=== PATIENT | male | born 1980 | race African-American/Black ===

== ENCOUNTER 2017-12-12 19:45 | Inpatient (IN) | payer MEDICAID ==
[~2017-12-12] VITALS: Ht 180.3 cm; Wt 62.6 kg
[~2017-12-12 19:45] MED LIST: ACET-787 PO
[2017-12-12 19:50] VITALS: BP 119/81
[2017-12-12] MEDS ORDERED: HYDROmorphone PFS 4 MG/ML SYR IVP ONE (20:05)
[2017-12-12] MEDS ORDERED: NACL 0.9% 1,000 ML IV ONE ×2 (20:05→22:25)
[2017-12-12] MEDS ORDERED: diphenhydrAMINE 50 MG/ML VIAL IVP ONE ×2 (20:05→23:00)
[2017-12-12 21:18] LABS: HEMATOCRIT 38.3 % (36-52); HEMOGLOBIN 12.6 g/dL (12.0-18.0); MEAN CORPUSCULAR HEMOGLOBIN 29 pg (27-31); MEAN CORPUSCULAR HGB CONC 33 g/dL (33-37); MEAN CORPUSCULAR VOLUME 87 fL (80-94); PLATELET COUNT (AUTO) 165 K/uL (140-450); RED BLOOD CELL COUNT(AUTO) 4.39 MIL/uL (4.20-6.10); RED CELL DISTRIBUTION WIDTH 13.5 % (11.6-13.7)
[2017-12-12 21:22] LABS: WHITE BLOOD COUNT (AUTO) 5.7 K/uL (4.8-10.8)
[2017-12-12 21:33] LABS: EOSINOPHILS % (MANUAL) 1 % (0-4); LYMPHOCYTES % (MANUAL) 67 % (20-46); MONOCYTES % (MANUAL) 4 % (5-12)
[2017-12-12 21:42] LABS: PROTHROMBIN TIME 11.6 secs (10.8-13.4)
[2017-12-12] MEDS ORDERED: HYDROmorphone PFS 2 MG/ML SYR IVP ONE (23:00)
[2017-12-12] MEDS ORDERED: ONDANSETRON 4 MG/2 ML VIAL IVP PRN (23:15)
[2017-12-12] MEDS ORDERED: ACETAMINOPHEN 325 MG TAB PO PRN (23:15)
[2017-12-12] MEDS ORDERED: HYDROcodone/APAP 7.5/325 MG 1 TAB PO PRN (23:15)
[2017-12-12 23:45] VITALS: BP 123/54
[2017-12-12 23:48] LABS: BARBITURATE, URINE NEG. ng/ml (NEG <=200); BENZODIAZEPINE, URINE NEG. ng/mL (NEG <=200); CANNABINOID, URINE POS. ng/mL (NEG <=50); COCAINE, URINE NEG. ng/mL (NEG <=300); OPIATE, URINE POS. ng/mL (NEG <=2000); PHENCYCLIDINE SCREEN,URINE NEG. ng/mL (NEG <=25)
[2017-12-13] MEDS: NACL 0.9% 1,000 ML IV SCH ×2 (00:04→05:35)
[2017-12-13 00:13] LABS: APPEARANCE,URINE CLEAR (CLEAR); BILIRUBIN,URINE NEGATIVE (NEGATIVE); BLOOD, URINE NEGATIVE (NEGATIVE); COLOR,URINE YELLOW (YELLOW); LEUKOCYTE ESTERASE ,URINE NEGATIVE (NEGATIVE); NITRITE, URINE NEGATIVE (NEGATIVE); UGLUCOSE NEGATIVE (NEGATIVE)
[2017-12-13 00:48] LABS: ALBUMIN 3.8 g/dL (3.4-5.0); ANION GAP 14.9 (8-16); CARBON DIOXIDE 25.2 mmol/L (21-32); CREATININE 1.4 mg/dL (0.7-1.3); POTASSIUM 4.1 mmol/L (3.5-5.1); TOTAL BILIRUBIN 0.8 mg/dL (0.0-1.0)
[2017-12-13] MEDS ORDERED: MORPHINE SULFATE 2 MG/ML SYR IVP PRN (01:50)
[2017-12-13 02:33] LABS: CHOL/HDL RATIO 1.7 (1-4.5); FREE T4 (FREE THYROXINE) 0.9 ng/dL (0.76-1.46); PHOSPHORUS 3.1 mg/dL (2.5-4.9); THYROID STIMULATING HORMONE 1.92 uIU/mL (0.34-3.74)
[2017-12-13 04:00] VITALS: BP 120/63
[2017-12-13 06:29] LABS: HEMATOCRIT 30.7 % (36-52); HEMOGLOBIN 10.1 g/dL (12.0-18.0); MEAN CORPUSCULAR HEMOGLOBIN 29 pg (27-31); MEAN CORPUSCULAR HGB CONC 33 g/dL (33-37); MEAN CORPUSCULAR VOLUME 89 fL (80-94); PLATELET COUNT (AUTO) 151 K/uL (140-450); RED BLOOD CELL COUNT(AUTO) 3.46 MIL/uL (4.20-6.10); RED CELL DISTRIBUTION WIDTH 13.3 % (11.6-13.7); WHITE BLOOD COUNT (AUTO) 6.4 K/uL (4.8-10.8)
[2017-12-13 06:55] LABS: CARBON DIOXIDE 23.3 mmol/L (21-32); POTASSIUM 4.3 mmol/L (3.5-5.1)
[2017-12-13 06:56] LABS: CREATININE 1.3 mg/dL (0.7-1.3)
[2017-12-13 07:09] LABS: MAGNESIUM 1.2 mg/dL (1.8-2.4); PHOSPHORUS 2.4 mg/dL (2.5-4.9)
[2017-12-13 07:28] LABS: EOSINOPHILS % (MANUAL) 3 % (0-4); LYMPHOCYTES % (MANUAL) 24 % (20-46); MONOCYTES % (MANUAL) 12 % (5-12)
[2017-12-13 08:00] VITALS: BP 115/77
[2017-12-13] MEDS ORDERED: DOCUSATE SODIUM 100 MG GELCAP PO SCH (09:00)
[2017-12-13] MEDS ORDERED: HYDROcodone/APAP 10/325 MG 1 TAB TAB PO PRN (11:55)
[2017-12-13 12:50] VITALS: BP 110/68
[2017-12-13] MEDS ORDERED: CALCIUM CARBONATE 500 MG TAB PO SCH (14:00)
[2017-12-13] MEDS ORDERED: MAGNESIUM OXIDE 400 MG TAB PO SCH (14:00)
[2017-12-13] MEDS ORDERED: SODIUM PHOS / POTASSIUM PHOS 1 PKT PDR PO SCH (14:00)
[2017-12-13 16:10] VITALS: BP 113/68
[2017-12-13] MEDS ORDERED: MECL-272 PO (16:24)
[2017-12-13] MEDS ORDERED: ONDA4ODT1 SL (16:24)
[2017-12-13] MEDS ORDERED: NORC10 PO (16:24)
[2017-12-13] MEDS ORDERED: DOCU-299 PO (16:24)
== END 2017-12-13 17:30 | disposition home or self-care (01) | DRG 469 ==
LOC: MED 19:45 → MTU 23:17
PROVIDERS: ADMIT Family Medicine Sports Medicine; ATTEND Family Medicine Sports Medicine
DX: N17.0 Acute kidney failure with tubular necrosis (principal); E87.8 Other disorders of electrolyte and fluid balance, not elsewhere classified; G89.4 Chronic pain syndrome; F12.10 Cannabis abuse, uncomplicated; D64.9 Anemia, unspecified; E83.51 Hypocalcemia; E83.42 Hypomagnesemia; E83.39 Other disorders of phosphorus metabolism; Z88.0 Allergy status to penicillin
CPT/HCPCS: 36415; 71045; 80048; 80053; 80305; 81003; 82550; 83036; 83605; 83735; 83880; 84100; 84439; 84443; 84484; 85025; 85045; 85610; 87040; 87081; 87086; 87804; 93005; 96361; 96374; 96375; 96376; 97116; 99285; J1170; J1200; J2270; J7030; Q0092

== ENCOUNTER 2019-03-18 11:58 | Inpatient (IN) | payer MEDICAID ==
[~2019-03-18] VITALS: Ht 180.3 cm; Wt 61.2 kg
[~2019-03-18 11:58] MED LIST changes: -ACET-787 PO; +DOCU-299 PO; +MECL-272 PO; +NORC10 PO; +ONDA-24 SL
[2019-03-18 12:04] VITALS: BP 102/46
--- NOTE | 2019-03-18 12:20 | NUR ---
BIB SELF. AAO X 4 C/O SOB SINCE LAST NIGHT, 99 O2 SAT AT THIS TIME, PT SHOWS NO TIME OF DISSTRESS AT THIS TIME, VSS. DENIES COUGHING, NAUSEA, VOMITING. MILA UPPER LUNGS CLEAR UPON AUSCULTATION. HOB UP. BED SIDE RAILS UP X1. ON LOW BED POSITION, LOCKED. MD MARS MADE AWARE OF PT STATUS. Addendum: 03/18/19 at 1402 by [facility] BIB SELF. AAO X 4 C/O GENERALIZED CHEST PAIN X 3 DAYS, SOB SINCE LAST NIGHT, 99 O2 SAT AT THIS TIME, PT SHOWS NO TIME OF DISTRESS AT THIS TIME, VSS. NON DIAPHORETIC. DENIES COUGHING, NAUSEA, VOMITING. MILA UPPER LUNGS CLEAR UPON AUSCULTATION. FACIAL SYMMETRICAL, CLEAR SPEECH. HOB UP. BED SIDE RAILS UP X1. ON LOW BED POSITION, LOCKED. MD MARS MADE AWARE OF PT STATUS.
--- NOTE | 2019-03-18 12:20 | NUR ---
PT TO ER BED 2
[2019-03-18] MEDS ORDERED: ONDANSETRON 4 MG/2 ML VIAL IVP ONE (12:45)
[2019-03-18] MEDS ORDERED: KETOROLAC 30 MG/ML VIAL IVP ONE (12:45)
[2019-03-18] MEDS ORDERED: MORPHINE SULFATE 4 MG/ML SYR IVP ONE (12:45)
--- NOTE | 2019-03-18 12:50 | NUR ---
PT IS 02 SATURATION IS AT 99% ROOM AIR. NO SIGNS AND SYMPTOMS OF RESPIRATORY DISTRESS. WILL CONTINUE TO MONITOR.
[2019-03-18 13:15] LABS: BASOPHILS % (AUTO) 0.8 % (0.0-2.0); EOSINOPHILS # (AUTO) 0.2 K/uL (0-0.4); EOSINOPHILS % (AUTO) 2.8 % (0.0-4.0); HEMATOCRIT 34.7 % (36-52); HEMOGLOBIN 12.1 g/dL (12.0-18.0); LYMPHOCYTES # (AUTO) 3.3 K/uL (2.0-11.5); MEAN CORPUSCULAR HEMOGLOBIN 29 pg (27-31); MEAN CORPUSCULAR HGB CONC 35 g/dL (33-37); MEAN CORPUSCULAR VOLUME 83.9 fL (80-94); MONOCYTES # (AUTO) 0.4 K/uL (0.8-1.0); MONOCYTES % (AUTO) 7.3 % (1.7-9.3); NEUTROPHILS % (AUTO) 33.1 % (42.2-75.2); PLATELET COUNT (AUTO) 212 K/uL (140-450); RED BLOOD CELL COUNT(AUTO) 4.14 MIL/uL (4.20-6.10); RED CELL DISTRIBUTION WIDTH 15.2 % (11.6-13.7); WHITE BLOOD COUNT (AUTO) 5.9 K/uL (4.8-10.8)
--- NOTE | 2019-03-18 13:20 | NUR ---
RADIOLOGY AT BEDSIDE
[2019-03-18 13:30] LABS: PROTHROMBIN TIME 10.6 secs (10.8-13.4)
[2019-03-18 13:34] LABS: BARBITURATE, URINE NEG. ng/ml (NEG <=200); BENZODIAZEPINE, URINE NEG. ng/mL (NEG <=200); CANNABINOID, URINE POS. ng/mL (NEG <=50); COCAINE, URINE NEG. ng/mL (NEG <=300); OPIATE, URINE NEG. ng/mL (NEG <=2000); PHENCYCLIDINE SCREEN,URINE NEG. ng/mL (NEG <=25)
[2019-03-18 13:43] LABS: ANION GAP 9.4 (8-16); CARBON DIOXIDE 28.8 mmol/L (21-32); CREATININE 1.3 mg/dL (0.7-1.3); POTASSIUM 4.2 mmol/L (3.5-5.1)
[2019-03-18 13:48] LABS: ALBUMIN 3.5 g/dL (3.4-5.0); TOTAL BILIRUBIN 0.5 mg/dL (0.0-1.0)
--- NOTE | 2019-03-18 14:02 | NUR ---
CRITICAL LAB REPORTING RECEIVED TROPONIN 1.032. DR RESTREPO NOTIFIED.
--- NOTE | 2019-03-18 14:05 | NUR ---
PATIENT IS AAO X4. FULL CLEAR SPEECH. PT IS ON THE PHONE AT THIS TIME.
[2019-03-18] MEDS ORDERED: ASPIRIN 325 MG TAB PO ONE (14:15)
[2019-03-18] MEDS ORDERED: CLOPIDOGREL 75 MG TAB PO ONE (14:15)
[2019-03-18] MEDS ORDERED: FAMOTIDINE 20 MG TAB PO ONE (14:15)
--- NOTE | 2019-03-18 14:40 | NUR ---
PT WAS GIVEN BLANKETS PER PT'S REQUEST.
[2019-03-18] MEDS ORDERED: LACTATED RINGERS 1,000 ML IV ONE (15:10)
--- NOTE | 2019-03-18 15:15 | NUR ---
AAO X4. ABLE TO CONVERSATE WITH FULL CLEAR SPEECH. NO SIGNS AND SYMPTOMS OF RESPIRATORY DISTRESS NOTED. WILL CONTINUE TO MONITOR.
[2019-03-18 15:17] LABS: D-DIMER 308 ng/ml (0-400)
--- NOTE | 2019-03-18 16:15 | NUR ---
PT'S AT BEDSIDE. PT AAO X4. CLEAR SPEECH. NO SIGNS AND SYMPTOMS OF RESPIRATORY DISTRESS NOTED.
[2019-03-18 16:46] LABS: FIBRINOGEN 259 mg/dL (200-400)
[2019-03-18] MEDS ORDERED: MORPHINE SULFATE 2 MG/ML SYR IVP PRN (17:05)
[2019-03-18] MEDS ORDERED: LORazepam 2 MG/ML VIAL IM/IVP PRN (17:05)
[2019-03-18] MEDS ORDERED: ACETAMINOPHEN 325 MG TAB PO PRN (17:05)
[2019-03-18] MEDS ORDERED: HYDROcodone/APAP 5/325 MG 1 TAB TAB PO PRN (17:05)
[2019-03-18] MEDS ORDERED: DOCUSATE SODIUM 100 MG GELCAP PO PRN (17:05)
--- NOTE | 2019-03-18 17:10 | NUR ---
PT GIVEN FOOD TRAY FOR DINNER ORDERED.
--- NOTE | 2019-03-18 18:14 | NUR ---
RECEIVED REPORT FROM ER NURSE AT BEDSIDE. PT ADMITTED WITH DX OF SECKEL CELL ANEMIA. PT IS AOX4, ABLE TO AMBULATE. REGULAR DIET. HAS LFT AC 22G, SALINE LOCK. SKIN IS INTACT. VS RECORDED T 98.0, O2 98% ON RA, HR 65, BP 109/80. PT ON SAW REPAIRER . PLACED CALL LIGHT WITHIN PTS REACH. INFORMED TO USE CALL LIGHT FOR ANY HELP. PT STABLE, LYING ON HIS BED COMFORTABLY. NO SIGN OF DISTRESS NOTED. WILL CONTINUE TO MONITOR PT.
--- NOTE | 2019-03-18 18:18 | NUR ---
Patient will be admitted to care of Dr Hsieh. Admited to Tele. Will go to room 112 B. Belongings list completed. Report to SO Swain.
[2019-03-18 18:22] LABS: PHOSPHORUS 3.6 mg/dL (2.5-4.9); THYROID STIMULATING HORMONE 3.91 uIU/mL (0.34-3.74)
[2019-03-18] MEDS ORDERED: hePARIN / DEXT 5% PREMIX 250 ML IV SCH (18:40)
[2019-03-18] MEDS ORDERED: HEPARIN PER PHARMACY MC PRN (18:40)
[2019-03-18] MEDS ORDERED: KETOROLAC 15 MG/ML VIAL IVP PRN (18:40)
--- NOTE | 2019-03-18 19:12 | NUR ---
ENDORSED PT TO PM NURSE AT BEDSIDE. PT SLEEPING IN HIS BED AT THIS TIME. MRSA SWAB COLLECTED AND ENDORSED TO PM NURSE.
[2019-03-18 19:30] VITALS: BP 124/86
--- NOTE | 2019-03-18 19:30 | NUR ---
RECEIVED PATIENT REPORT AT BEDSIDE. PATIENT AWAKE, ALERT AND ORIENTED. PT ON ROOM AIR, NO S/S OF DISTRESS AT THIS TIME. PT REPORTS 8/10 PRESSURE PAIN TO HIS CHEST. WILL MEDICATE. PT ON TELE MONITORING. BED LOWERED WITH CALL LIGHT WITHIN REACH
[2019-03-18] MEDS: MORPHINE SULFATE 2 MG/ML SYR IVP PRN (19:51)
--- NOTE | 2019-03-18 20:00 | NUR ---
HEPARIN DRIP STARTED PER PROTOCOL
[2019-03-18] MEDS: hePARIN / DEXT 5% PREMIX 250 ML IV SCH (20:01)
[2019-03-18] MEDS: NACL 0.9% 1,000 ML IV SCH (20:05)
--- NOTE | 2019-03-18 21:01 | NUR ---
RECEIVED PATIENT ON ROOM AIR, PULSE OX SAT 99%. NO SOB. NO RESPIRATORY DISTRESS NOTED AT THIS TIME. WILL CONTINUE TO MONITOR.
--- NOTE | 2019-03-18 22:30 | NUR ---
PATIENT AWAKE IN BED, WATCHING TELEVISION. PATIENT REPORTS IMPROVED CHEST PAIN
[2019-03-19] VITALS (7 sets, daily range): BP systolic 97–123; BP diastolic 56–78
[2019-03-19] MEDS: MORPHINE SULFATE 2 MG/ML SYR IVP PRN ×4 (02:12→20:49)
[2019-03-19] MEDS: ZOLPIDEM 5 MG TAB PO PRN ×2 (02:15→20:52)
[2019-03-19] MEDS: hePARIN / DEXT 5% PREMIX 250 ML IV SCH ×3 (02:41→23:49)
[2019-03-19] MEDS: NACL 0.9% 1,000 ML IV SCH ×3 (03:04→23:04)
--- NOTE | 2019-03-19 03:09 | NUR ---
PT ASLEEP AT THIS TIME. NO S/S OF DISTRESS NOTED
--- NOTE | 2019-03-19 07:22 | NUR ---
PATIENT REPORT GIVEN AT BEDSIDE. PATIENT ENDORSED IN STABLE CONDITION
--- NOTE | 2019-03-19 07:23 | NUR ---
REPORT RECEIVED FROM PM NURSE. PT LAYING IN BED. BREATHING EQUAL AND UNLABORED. IV INTACT RUNNING HEPARIN DRIP. PT IN NO VISIBLE DISTRESS. CALL LIGHT WITHIN REACH.
[2019-03-19 08:07] LABS: BASOPHILS % (AUTO) 0.2 % (0.0-2.0); EOSINOPHILS # (AUTO) 0.2 K/uL (0-0.4); EOSINOPHILS % (AUTO) 2.7 % (0.0-4.0); HEMATOCRIT 33.7 % (36-52); HEMOGLOBIN 11.8 g/dL (12.0-18.0); LYMPHOCYTES # (AUTO) 3.6 K/uL (2.0-11.5); LYMPHOCYTES % (AUTO) 61.1 % (20.5-51.1); MEAN CORPUSCULAR HEMOGLOBIN 29 pg (27-31); MEAN CORPUSCULAR HGB CONC 35 g/dL (33-37); MEAN CORPUSCULAR VOLUME 83.3 fL (80-94); MONOCYTES # (AUTO) 0.4 K/uL (0.8-1.0); MONOCYTES % (AUTO) 6.8 % (1.7-9.3); NEUTROPHILS # (AUTO) 1.7 K/uL (1.8-7.7); NEUTROPHILS % (AUTO) 29.2 % (42.2-75.2); PLATELET COUNT (AUTO) 216 K/uL (140-450); RED BLOOD CELL COUNT(AUTO) 4.04 MIL/uL (4.20-6.10); RED CELL DISTRIBUTION WIDTH 15.3 % (11.6-13.7); WHITE BLOOD COUNT (AUTO) 5.9 K/uL (4.8-10.8)
--- NOTE | 2019-03-19 08:08 | NUR ---
PATIENT HAS BEEN SCREENED AND CATEGORIZED MODERATE NUTRITION RISK. PATIENT WILL BE SEEN WITHIN 3-5 DAYS OF ADMISSION. 03/21/19[address]
[2019-03-19] MEDS: ATORVASTATIN 20 MG TAB PO SCH (08:22)
[2019-03-19] MEDS: ASPIRIN 81 MG TAB.CHEW PO SCH (08:22)
[2019-03-19 08:25] LABS: ANION GAP 10.4 (8-16); CARBON DIOXIDE 27.7 mmol/L (21-32); CREATININE 1.2 mg/dL (0.7-1.3); POTASSIUM 4.1 mmol/L (3.5-5.1)
[2019-03-19 08:29] LABS: MAGNESIUM 1.7 mg/dL (1.8-2.4); PHOSPHORUS 3.1 mg/dL (2.5-4.9)
[2019-03-19 09:33] LABS: CHOL/HDL RATIO 2.1 (1-4.5)
[2019-03-19] MEDS ORDERED: MAGNESIUM OXIDE 400 MG TAB PO SCH (10:00)
--- NOTE | 2019-03-19 10:16 | NUR ---
Spoke to Manuel clinical laboratory aides teacher re: PTT result. Per Manuel, specimen is already drawn & waiting for results.
--- NOTE | 2019-03-19 10:40 | NUR ---
HEPARIN DRIP HELD DUE TO ELEVATED PTT. IV LINE FLUSHED WITH SALINE, PT SHOWS NO SIGNS OF BLEEDING.
--- NOTE | 2019-03-19 11:50 | NUR ---
RESUMED HEPARIN DRIP TO LEFT AC IV AT 800 UNITS/HR. PT SHOWS NO SIGNS OF BLEEDING.
--- NOTE | 2019-03-19 12:30 | NUR ---
O2 OFF, ASKED PT TO WEAR N.C. PT REFUSED, STATES HE IS BREATHING OKAY. EXPLAINED BENEFITS OF O2 SUPPLEMENT FOR SICKLE CELL CRISIS. PT VERBALIZED UNDERSTANDING BUT CONTINUES TO REFUSE. NO C/O OF DISCOMFORT. NO SIGNS OF DISTRESS.
--- NOTE | 2019-03-19 14:05 | NUR ---
REVIEWED WITH DR. YAEL SALINAS CARBOXYHEMOGLOBIN STATUS LEVEL TAKEN FROM ABG ON 03/18/2018 REVIEWED PATIENT ASSESSMENT AND HISTORY LOC AWAKE AND ALERT VERBALLY RESPONSIVE FOLLOWS COMMANDS PATIENT IS NOT CURRENTLY EXPOSED TO TOXIN CAUSING INCREASED LEVEL OF CARBOXYHEMOGLOBIN SATURATION 100% ON ROOM AIR NO SOB NOTED RR 16-20 BREATH SOUNDS CLEAR BILATERAL EQUAL CHEST RISE HIGH FLOW OXYGEN ORDERED IS NOT APPROPRIATE NOTED TODAY AT 1230 BY RN PATIENT IS REFUSING TO EVEN USE SUPPLEMENTAL OXYGEN VIA NASAL CANNULA
--- NOTE | 2019-03-19 19:10 | NUR ---
REPORT GIVEN TO PM NURSE MASOUD. PT IN BED, AWAKE. NO SIGNS OF DISTRESS
--- NOTE | 2019-03-19 19:11 | NUR ---
RECEIVED BEDSIDE REPORT FROM DAY SHIFT NURSE. PT IN STABLE CONDITION. NO S/S OF SOB OR ANY DISCOMFORT. DENIED PAIN. IV SITE ON LAC 22GAUZE, RUNNING WITH NS @ 100ML/HR. PATENT, INTACT, AND ASYMPTOMATIC. SKIN WARM, DRY AND INTACT. BED IN LOW POSITION. CALL LIGHT WITHIN REACH. WILL CONTINUE TO MONITOR.
--- NOTE | 2019-03-19 20:48 | NUR ---
RECEIVED PATIENT ON ROOM AIR, PULSE OX SAT 100%. NO SOB. NO RESPIRATORY DISTRESS NOTED AT THIS TIME. WILL CONTINUE TO MONITOR.
--- NOTE | 2019-03-19 20:49 | NUR ---
PT C/O PAIN 8/10 ABDOMINAL PAIN. PT TOLERATED WELL. AMBIEN GIVEN FOR SLEEP.
--- NOTE | 2019-03-19 22:05 | NUR ---
PT SLEEPING BUT AROUSABLE. NO S/S OF DISTRESS NOTED. WILL CONTINUE TO MONITOR.
--- NOTE | 2019-03-19 23:40 | NUR ---
LAB CALLED FOR CRITICAL VALUE, APTT 80.2, PROTOCOL SAYS DECREASE RATE BY 100 UNITS / HR. TOTAL RATE NOW 700UNITS /HR.
--- NOTE | 2019-03-19 23:49 | NUR ---
HEPARIN IVPB HUNG RUNNING HEPARIN @ 700UNITS/HR Addendum: 03/20/19 at 0325 by Janee Brown RN OR 7ML/HR.
[2019-03-20] VITALS (7 sets, daily range): BP systolic 106–110; BP diastolic 69–85
--- NOTE | 2019-03-20 03:05 | NUR ---
WENT IN TO MEDICATE PATIENT FOR PAIN. NOTICED THE BAG OF HEPARIN DRIP WAS BECOMING EMPTY. CHECKED THE BAG AND THERE WAS ONLY 50ML OF FLUID LEFT. CHECKED THE IV INFUSION PUMP AND IT STATED THAT IT WAS ON IVF@70ML/HR. PATIENT'S NS RUNS@100ML/HR. ASSESSED THE PATIENT FOR ANY SIGNS OF BLEEDING. PT STATED HE FELT FINE. CHARGE NURSE WAS NOTIFIED AND WAS IN THE ROOM TO SEE PATIENT STATUS. Addendum: 03/20/19 at 0337 by Arley Dutton RN PT VITAL SIGNS STABLE. BP 109/69. HR 57. O2 SAT 100%. TEMPERATURE OF 98.2. RR 16. THESE ARE PT BASELINE VITALS.
[2019-03-20] MEDS: MORPHINE SULFATE 2 MG/ML SYR IVP PRN ×2 (03:08→09:08)
--- NOTE | 2019-03-20 03:10 | NUR ---
MD NOTIFIED ABOUT FINDINGS OF HEPARIN DRIP. MD TO SEE PATIENT. PATIENT SLIGHTLY ANXIOUS BUT WAS CALM AFTER EXPLAINING TO HIM THE DRIP WOULD NOT AFFECT SEVERELY.
--- NOTE | 2019-03-20 03:15 | NUR ---
MD AWARE OF THE SITUATION. ORDERS TO STOP HEPARIN DRIP AND WAIT FOR THE NEXT APTT LAB TO REASSESS THE SITUATION. ALLOW PATIENT TO GET BACK INTO THERAPEUTIC RANGE AND CONTINUE HEPARIN DRIP THEN.
--- NOTE | 2019-03-20 03:20 | NUR ---
ENSURED PATIENT THAT EVERYTHING IS FINE. PATIENT CALMED DOWN AND WENT BACK TO BED. CHECKED PATIENT URINE TO ENSURE THERE IS NO EXCESSIVE BLEEDING. Addendum: 03/20/19 at 0339 by Arley Dutton RN TOLD PATIENT THAT IF HE FEELS ANY FEELINGS OF DISTRESS OR S/S OF GENERAL WEAKNESS TO PRESS THE CALL BUTTON.
--- NOTE | 2019-03-20 04:45 | NUR ---
PT SLEEPING COMFORTABLY BUT AROUSABLE. NO S/S OF DISTRESS NOTED. NO C/O PAIN. NO SOB. NO FEVER. RESPIRATION EVEN AND UNLABORED WITHIN NORMAL LIMIT. WILL CONTINUE TO MONITOR.
[2019-03-20 06:44] LABS: BASOPHILS # (AUTO) 0.1 K/uL (0.00-0.22); BASOPHILS % (AUTO) 0.9 % (0.0-2.0); EOSINOPHILS # (AUTO) 0.2 K/uL (0-0.4); EOSINOPHILS % (AUTO) 2.6 % (0.0-4.0); HEMATOCRIT 34.1 % (36-52); HEMOGLOBIN 12.1 g/dL (12.0-18.0); LYMPHOCYTES # (AUTO) 2.9 K/uL (2.0-11.5); LYMPHOCYTES % (AUTO) 44.8 % (20.5-51.1); MEAN CORPUSCULAR HEMOGLOBIN 30 pg (27-31); MEAN CORPUSCULAR HGB CONC 36 g/dL (33-37); MEAN CORPUSCULAR VOLUME 83.4 fL (80-94); MONOCYTES # (AUTO) 0.6 K/uL (0.8-1.0); MONOCYTES % (AUTO) 8.9 % (1.7-9.3); NEUTROPHILS # (AUTO) 2.8 K/uL (1.8-7.7); NEUTROPHILS % (AUTO) 42.8 % (42.2-75.2); PLATELET COUNT (AUTO) 215 K/uL (140-450); RED BLOOD CELL COUNT(AUTO) 4.08 MIL/uL (4.20-6.10); RED CELL DISTRIBUTION WIDTH 14.7 % (11.6-13.7); WHITE BLOOD COUNT (AUTO) 6.5 K/uL (4.8-10.8)
[2019-03-20 06:46] LABS: ANION GAP 9.5 (8-16); CARBON DIOXIDE 29.7 mmol/L (21-32); CREATININE 1.2 mg/dL (0.7-1.3); POTASSIUM 4.2 mmol/L (3.5-5.1)
[2019-03-20 06:47] LABS: MAGNESIUM 1.8 mg/dL (1.8-2.4); PHOSPHORUS 3.3 mg/dL (2.5-4.9)
--- NOTE | 2019-03-20 07:10 | NUR ---
CRITICAL LAB VALUE RECEIVED FROM LAB. APTT GREATER THAN 150.
--- NOTE | 2019-03-20 07:14 | NUR ---
REPORT GIVEN TO AM NURSE AT BEDSIDE. PT IN STABLE CONDITION.
--- NOTE | 2019-03-20 07:15 | NUR ---
RECEIVED REPORT FROM PM NURSE MASOUD. PT IN BED, ASLEEP. NO VISIBLE SIGNS OF DISTRESS. WOKE UP WHEN NAME IS CALLED. ABLE TO ANSWER QUESTIONS APPROPRIATELY. CALL LIGHT WITHIN REACH.
--- NOTE | 2019-03-20 07:40 | NUR ---
NOTIFIED OF CRITICAL LAB VALUE OF APTT.
[2019-03-20] MEDS: ONDANSETRON 4 MG/2 ML VIAL IM/IVP PRN ×2 (08:58→15:39)
--- NOTE | 2019-03-20 08:58 | NUR ---
Zofran admin: Pt c/o nausea. Zofran given. Emesis provided at bedside.
[2019-03-20] MEDS ORDERED: MAGNESIUM OXIDE 400 MG TAB PO SCH (09:00)
[2019-03-20] MEDS: ASPIRIN 81 MG TAB.CHEW PO SCH (09:00)
--- NOTE | 2019-03-20 09:00 | NUR ---
Aspirin held d/t elevated PTT. No signs of bleeding a this time.
[2019-03-20] MEDS: ATORVASTATIN 20 MG TAB PO SCH (09:08)
[2019-03-20] MEDS: NACL 0.9% 1,000 ML IV SCH ×2 (09:33→19:04)
--- NOTE | 2019-03-20 10:05 | NUR ---
AWAKE AND ALERT ADVISED PATIENT OF PENDING ABG THAT NEEDS BE DRAWN PATIENT STATES "I DON'T WANT IT - IT HURTS ME TOO MUCH" DR. AVA BURNS AND SMITH/SO NOTIFIED
--- NOTE | 2019-03-20 11:00 | NUR ---
PT SLEEPING IN BED. NO VISIBLE SIGNS OF DISTRESS. CALL LIGHT WITH IN REACH.
--- NOTE | 2019-03-20 13:00 | NUR ---
Pt requests not to have heparin drip anymore. Per heparin pharmacy protocol, heparin drip to resume at 500units/hr. Dr. Rivera notified. Per physician, ok to hold heparin per pt request.
--- NOTE | 2019-03-20 15:30 | NUR ---
Pt c/o nausea. no vomiting. Zofran given.
--- NOTE | 2019-03-20 16:30 | NUR ---
PT ASLEEP. FLACC 0. LEFT AC IV INTACT WITH N.S @ 100ML/HR. CALL LIGHT WITH IN REACH. NO SIGNS OF BLEEDING.
--- NOTE | 2019-03-20 19:30 | NUR ---
Bedside report given to pm nurse Ingrid. Pt resting in bed, awake, no signs of distress. Explained to pt, awaiting sales contracts analyst visit today. Pt verbalized he will leave AMA if sales contracts analyst does not come in. Reassurance provided. PM nurse notified.
--- NOTE | 2019-03-20 19:30 | NUR ---
RECEIVED BEDSIDE REPORT FROM DAY SHIFT NURSE. PT IN STABLE CONDITION. RESPIRATION EVEN UNLABORED ON ROOM AIR. NO S/S OF SOB OR ANY DISCOMFORT.SKIN IS WARM AND DRY. DENIED PAIN. IV SITE PATENT AND INTACT. ALL SAFETY MEASURES IN PLACE. BED IS AT LOW POSITION. CALL LIGHT WITHIN REACH. WILL CONTINUE TO MONITOR.
--- NOTE | 2019-03-20 20:00 | NUR ---
INITIAL ASSESSMENT DONE. VITALS WERE TAKEN. PATIENT CONDITION STABLE. WILL CONTINUE TO MONITOR
--- NOTE | 2019-03-20 21:00 | NUR ---
HEPARIN NOT ADMINISTERED DUE TO PARAMETER.
[2019-03-20] MEDS ORDERED: ACET-5629 PO (22:04)
[2019-03-20] MEDS ORDERED: ONDA-24 SL (22:04)
--- NOTE | 2019-03-20 22:34 | NUR ---
RECEIVED PATIENT ON ROOM AIR, PULSE OX SAT 99%. NO DISTRESS NOTED AT THIS TIME. WILL CONTINUE TO MONITOR.
--- NOTE | 2019-03-20 22:45 | NUR ---
PATIENT DISCHARGED. EDUCATED ON DISEASE PROCESS, MEDS, S/SX, WHEN TO GO TO ER AND EDUCATED ON THE IMPORTANCE TO FOLLOW UP WITH HIS PCP. IV REMOVE. NO ACTIVE BLEEDING SEEN. CANNULA TIP INTACT. PATIENT CONDITION STABLE.
== END 2019-03-21 02:21 | disposition home or self-care (01) | DRG 662 ==
LOC: MED 11:58 → MTU 17:44
PROVIDERS: ADMIT General Practice; ATTEND General Practice
DX: D57.00 Hb-SS disease with crisis, unspecified (principal); E83.42 Hypomagnesemia; R07.9 Chest pain, unspecified; F12.90 Cannabis use, unspecified, uncomplicated; E03.9 Hypothyroidism, unspecified; Z83.2 Family history of diseases of the blood and blood-forming organs and certain disorders involving the immune mechanism; Z88.0 Allergy status to penicillin; Z79.899 Other long term (current) drug therapy; Z71.51 Drug abuse counseling and surveillance of drug abuser
CPT/HCPCS: 36415; 36600; 71045; 80048; 80053; 80305; 82803; 83036; 83690; 83735; 83880; 84100; 84443; 84484; 85007; 85025; 85045; 85379; 85384; 85610; 85730; 87081; 93005; 96361; 96374; 96375; 99285; J1644; J1885; J2270; J2405; J7030; Q0092

== ENCOUNTER 2019-10-23 10:06 | Emergency (ER) | payer MEDICAID ==
[~2019-10-23] VITALS: Ht 172.7 cm; Wt 67.1 kg
[~2019-10-23 10:06] MED LIST changes: +ACET-5629 PO; -DOCU-299 PO; -MECL-272 PO; -NORC10 PO
[2019-10-23 10:12] VITALS: BP 127/81
--- NOTE | 2019-10-23 10:16 | NUR ---
38/M C/O UMBILICAL ABD PAIN WITH N/V SINCE 399 TODAY--CONTINUOUS. ALSO HAS EXTREMITY ACHING PAIN. HX OF SICKLE CELL. STATES HAS NEVER HAD SICKLE CELL CRISIS PRESENT WITH ABD PAIN. TAKES PERCOCET AT HOME PAIN 09/03; VSS DR. RAMSEY ALSO EVALUATING PT AT BEDSIDE. HX- SICKLE CELL
[2019-10-23] MEDS ORDERED: NACL 0.9% 1,000 ML IV SCH (10:21)
[2019-10-23] MEDS ORDERED: MORPHINE SULFATE 2 MG/ML SYR IVP ONE (10:25)
[2019-10-23] MEDS ORDERED: ONDANSETRON 4 MG/2 ML VIAL IVP ONE (10:25)
--- NOTE | 2019-10-23 10:40 | NUR ---
PHLEB AT BEDSIDE FOR BLOOD DRAW.
--- NOTE | 2019-10-23 10:52 | NUR ---
URINAL PROVIDED TO PT--ASKED PT TO PROVIDE URINE SAMPLE. PT VERBALIZED UNDERSTANDING.
--- NOTE | 2019-10-23 10:52 | NUR ---
PT REFUSED ABG x3. PHYSICIAN MADE AWARE.
[2019-10-23 11:08] LABS: EOSINOPHILS % (AUTO) 0.1 % (0.0-4.0); MONOCYTES # (AUTO) 0.3 K/uL (0.8-1.0); WHITE BLOOD COUNT (AUTO) 5.5 K/uL (4.8-10.8)
[2019-10-23 11:12] LABS: BASOPHILS % (AUTO) 0.4 % (0.0-2.0); HEMATOCRIT 36.7 % (36-52); HEMOGLOBIN 12.8 g/dL (12.0-18.0); LYMPHOCYTES # (AUTO) 1.2 K/uL (2.0-11.5); LYMPHOCYTES % (AUTO) 22.6 % (20.5-51.1); MEAN CORPUSCULAR HEMOGLOBIN 30 pg (27-31); MEAN CORPUSCULAR HGB CONC 35 g/dL (33-37); MEAN CORPUSCULAR VOLUME 86.5 fL (80-94); MONOCYTES % (AUTO) 5.1 % (1.7-9.3); NEUTROPHILS # (AUTO) 3.9 K/uL (1.8-7.7); NEUTROPHILS % (AUTO) 71.8 % (42.2-75.2); PLATELET COUNT (AUTO) 243 K/uL (140-450); RED BLOOD CELL COUNT(AUTO) 4.24 MIL/uL (4.20-6.10); RED CELL DISTRIBUTION WIDTH 14.5 % (11.6-13.7)
--- NOTE | 2019-10-23 11:16 | NUR ---
CXR AT BEDSIDE.
--- NOTE | 2019-10-23 11:16 | NUR ---
PT STATES UNABLE TO PROVIDE URINE NOW--REFUSE STRAIGHT CATH.
[2019-10-23 11:23] LABS: ANION GAP 17.1 (8-16); CARBON DIOXIDE 24.8 mmol/L (21-32); CHLORIDE 104 mmol/L (98-107); CREATININE 1.3 mg/dL (0.7-1.3); GFR ARICAN-AMERICAN 80 mL/min (>90); GLUCOSE 96 mg/dL (74-106); POTASSIUM 3.9 mmol/L (3.5-5.1); SODIUM SERUM 142 mmol/L (136-145); UREA NITROGEN, BLOOD 7 mg/dL (7-18)
[2019-10-23 11:26] LABS: PROTHROMBIN TIME 9.9 secs (10.8-13.4)
[2019-10-23 11:28] LABS: ALBUMIN 4.4 g/dL (3.4-5.0); ASPARTATE AMINOTRANSFERASE 25 U/L (15-37); SALICYLATE 4.3 mg/dL (2.8-20.0)
[2019-10-23 11:31] LABS: ACETAMINOPHEN < 0.5 ug/ml (10-30)
[2019-10-23] MEDS ORDERED: NACL 0.9% 1,500 ML IV ONE (11:45)
--- NOTE | 2019-10-23 11:50 | NUR ---
BED [address] AT THIS TIME
--- NOTE | 2019-10-23 12:06 | NUR ---
RETURN FROM CT.
--- NOTE | 2019-10-23 13:00 | NUR ---
IV removed, catheter intact and site benign. Applied folded 4x4 gauze and tape to stop bleeding.
[2019-10-23 13:07] VITALS: BP 116/73
[2019-10-23 15:00] LABS: BARBITURATE, URINE NEGATIVE ng/ml (NEG <=200); BENZODIAZEPINE, URINE NEGATIVE ng/mL (NEG <=200); CANNABINOID, URINE POSITIVE ng/mL (NEG <=50); COCAINE, URINE NEGATIVE ng/mL (NEG <=300); OPIATE, URINE NEGATIVE ng/mL (NEG <=2000); PHENCYCLIDINE SCREEN,URINE NEGATIVE ng/mL (NEG <=25)
[2019-10-23 15:14] LABS: APPEARANCE,URINE CLEAR (CLEAR); BILIRUBIN,URINE NEGATIVE (NEGATIVE); BLOOD, URINE NEGATIVE (NEGATIVE); COLOR,URINE YELLOW (YELLOW); PH,URINE 7.5 (5.0-9.0); UGLUCOSE NEGATIVE (NEGATIVE)
[2019-10-23 15:15] LABS: LEUKOCYTE ESTERASE ,URINE NEGATIVE (NEGATIVE); NITRITE, URINE NEGATIVE (NEGATIVE)
== END 2019-10-23 13:06 | disposition home or self-care (01) ==
LOC: MED 10:06
DX: R10.9 Unspecified abdominal pain (principal); M79.601 Pain in right arm; M79.602 Pain in left arm; M79.604 Pain in right leg; M79.605 Pain in left leg; R11.10 Vomiting, unspecified; Z88.0 Allergy status to penicillin; Z98.890 Other specified postprocedural states; Z79.899 Other long term (current) drug therapy
CPT/HCPCS: 36415; 71045; 74176; 80053; 80305; 81003; 83605; 85025; 85610; 85730; 87040; 93005; 96361; 96374; 96375; 99284; G0480; G0482; J7030; Q0092; J2270; J2405

== ENCOUNTER 2021-04-16 | Inpatient (IN) | payer MEDICAID, SELFPAY ==
[2021-04-16] VITALS: BP 105/70
[~2021-04-16] VITALS: Ht 180.3 cm; Wt 63.5 kg
--- NOTE | 2021-04-16 00:02 | NUR ---
BIBA TAKEN TO BED #10
--- NOTE | 2021-04-16 00:10 | NUR ---
40/M BIBA C/O DIZZINESS AFTER TAKING 4 EDIBLES TOTAL TO 2400MG OF MARIJUANA. PT AAOX4 AND ABLE TO MAKE NEEDS KNOWN. DENIES ANY CHEST PAIN OR DISCOMFORT. UPON TRIAGE PT BRADYCARDIC AT 45. OTHER VS STABLE. PT HOOKED TO MONITORS. SAFETY MEASURES IN PLACE. WILL CONTINUE TO MONITOR. PMH: SICKLE CELL ALLERGY: PENICILLIN
[2021-04-16] MEDS ORDERED: NACL 0.9% 1,000 ML IV ONE (00:15)
--- NOTE | 2021-04-16 00:33 | NUR ---
PTS GIRLFRIEND CALLED [facility] CONTACT # [phone]
[2021-04-16] MEDS ORDERED: ASPIRIN 325 MG TAB PO ONE (00:35)
[2021-04-16 00:41] LABS: HEMATOCRIT 35.7 % (36-52); HEMOGLOBIN 12.5 g/dL (12.0-18.0); MEAN CORPUSCULAR HEMOGLOBIN 30 pg (27-31); MEAN CORPUSCULAR HGB CONC 35 g/dL (33-37); MEAN CORPUSCULAR VOLUME 85.2 fL (80-94); PLATELET COUNT (AUTO) 220 K/uL (140-450); RED BLOOD CELL COUNT(AUTO) 4.19 MIL/uL (4.20-6.10); RED CELL DISTRIBUTION WIDTH 14.7 % (11.6-13.7); WHITE BLOOD COUNT (AUTO) 7.3 K/uL (4.8-10.8)
--- NOTE | 2021-04-16 00:45 | NUR ---
PT TAKEN TO CT VIA TRAMAINE
[2021-04-16 00:51] LABS: ALBUMIN 3.8 g/dL (3.4-5.0); ANION GAP 14.4 (8-16); ASPARTATE AMINOTRANSFERASE 20 U/L (15-37); CARBON DIOXIDE 24.7 mmol/L (21-32); CHLORIDE 106 mmol/L (98-107); CREATININE 1.3 mg/dL (0.6-1.3); GFR ARICAN-AMERICAN 79 mL/min (>90); GLUCOSE 94 mg/dL (74-106); POTASSIUM 4.1 mmol/L (3.5-5.1); SODIUM SERUM 141 mmol/L (136-145); TOTAL BILIRUBIN 0.8 mg/dL (0.0-1.0); UREA NITROGEN, BLOOD 10 mg/dL (7-18)
--- NOTE | 2021-04-16 00:55 | NUR ---
PT BACK FROM CT
[2021-04-16] MEDS ORDERED: ONDANSETRON 4 MG/2 ML VIAL IVP ONE (01:00)
[2021-04-16 01:09] LABS: EOSINOPHILS % (MANUAL) 1 % (0-4); LYMPHOCYTES % (MANUAL) 56 % (20-46); MONOCYTES % (MANUAL) 5 % (5-12)
--- NOTE | 2021-04-16 02:52 | NUR ---
PT PROVIDED URINE SPECIMEN. SPECIMEN WALKED TO LAB AND GIVEN EUGENE.
[2021-04-16 03:09] LABS: BARBITURATE, URINE NEGATIVE ng/ml (NEG <=200); BENZODIAZEPINE, URINE NEGATIVE ng/mL (NEG <=200); CANNABINOID, URINE POSITIVE ng/mL (NEG <=50); COCAINE, URINE NEGATIVE ng/mL (NEG <=300); OPIATE, URINE NEGATIVE ng/mL (NEG <=2000); PHENCYCLIDINE SCREEN,URINE NEGATIVE ng/mL (NEG <=25)
[2021-04-16] MEDS ORDERED: NACL 0.9% 1,000 ML IV SCH (03:40)
--- NOTE | 2021-04-16 03:45 | NUR ---
MICHAEL SWAB COLLECTED AND SENT TO LAB
[2021-04-16] MEDS ORDERED: HYDR2TAB6 PO (03:49)
--- NOTE | 2021-04-16 05:19 | NUR ---
PT ASLEEP. VS STABLE. PT DENIES ANY PAIN OR DISCOMFORT. NO REQUESTS MADE AT THIS TIME. PT KEPT COMFORTABLE. SAFETY MEASURES IN PLACE. WILL CONTINUE TO MONITOR.
[2021-04-16] MEDS: NACL 0.9% 1,000 ML IV SCH ×3 (05:45→20:20)
--- NOTE | 2021-04-16 07:15 | NUR ---
Received report from Jorge RIZZO. Patient asleep on bedside environmental monitoring technician at this time.
--- NOTE | 2021-04-16 07:39 | NUR ---
Patient expressed urge to use the restroom, unable to ambulate or get in wheel chair due to being dizzy. Provided bedside cammode.
--- NOTE | 2021-04-16 07:43 | NUR ---
Patient assisted back to bed
[2021-04-16 07:50] VITALS: BP 97/59
--- NOTE | 2021-04-16 07:50 | NUR ---
RECEIVED REPORTS FROM ER NURSE AT 0750. PATIENT TRANSFERRED TO UNIT TO ROOM 107B. PATIENT ALERT AND ORIENTED X4 . RESPIRATION EVEN AND UNLABORED AT ROOM AIR. IV SITE LFA 20 G INTACT.NS IVF NS 150ML/HR. VITAL SIGNS TAKEN . BED IN LOWER POSITION . CALL LIGHT WITHIN REACH. WILL CONTINUE TO MONITOR PATINE.
--- NOTE | 2021-04-16 07:50 | NUR ---
Patient will be admitted to care of Dr. Ashley. Admited to TELE. Will go to room 107B. Belongings list completed. Report to Radha.
--- NOTE | 2021-04-16 08:15 | NUR ---
MRSA SWAB DONE TO PT NOW AND SAMPLE WAS SENT TO LAB
[2021-04-16] MEDS ORDERED: IBUPROFEN 800 MG TAB PO PRN (10:25)
[2021-04-16] MEDS ORDERED: LORazepam 2 MG/ML VIAL IM/IVP PRN (10:25)
[2021-04-16] MEDS ORDERED: POTASSIUM CHLORIDE 10 MEQ TABER PO PRN (10:25)
[2021-04-16] MEDS ORDERED: ZOLPIDEM 5 MG TAB PO PRN (10:25)
[2021-04-16] MEDS ORDERED: HYDROcodone/APAP 5/325 MG 1 TAB TAB PO PRN (10:25)
[2021-04-16] MEDS ORDERED: ACETAMINOPHEN 325 MG TAB PO PRN (10:25)
[2021-04-16] MEDS ORDERED: DOCUSATE SODIUM 100 MG GELCAP PO PRN (10:25)
--- NOTE | 2021-04-16 10:30 | NUR ---
PT VERBALIZED THAT HE FEELS VERY WEAK NOW SO ORTHOSTATIC WAS NOT DONE.
[2021-04-16 11:05] LABS: APPEARANCE,URINE CLEAR (CLEAR); BILIRUBIN,URINE NEGATIVE (NEGATIVE); BLOOD, URINE NEGATIVE (NEGATIVE); COLOR,URINE YELLOW (YELLOW); LEUKOCYTE ESTERASE ,URINE NEGATIVE (NEGATIVE); NITRITE, URINE NEGATIVE (NEGATIVE); UGLUCOSE NEGATIVE (NEGATIVE)
[2021-04-16 11:16] LABS: PROTHROMBIN TIME 10.5 secs (10.8-13.4)
[2021-04-16 11:26] LABS: MAGNESIUM 1.7 mg/dL (1.8-2.4); PHOSPHORUS 3.1 mg/dL (2.5-4.9); THYROID STIMULATING HORMONE 1.73 uIU/mL (0.34-3.74)
[2021-04-16] MEDS: MAG SULF 2000 MG/WATER PREMIX 50 ML IV PRN (12:42)
[2021-04-16] MEDS ORDERED: MAG SULF 2000 MG/WATER PREMIX 50 ML IV SCH (13:00)
[2021-04-16] MEDS: ONDANSETRON 4 MG/2 ML VIAL IM/IVP PRN ×2 (14:12→20:24)
[2021-04-16] MEDS: MORPHINE SULFATE 2 MG/ML SYR IVP PRN (14:13)
--- NOTE | 2021-04-16 14:31 | NUR ---
MORPHINE 2MG GIVEN PER PKATIENT C/O PAIN 08/04. BP 104/70 HR 60. PATENT TOLERATED WELL. WILL CONTINUE MONITOR PATIENT.
[2021-04-16 16:00] VITALS: BP 91/56
--- NOTE | 2021-04-16 17:00 | NUR ---
PT'S BP WAS CHECKED NOW AND IS 105/71, PULSE IS 75, O2 SATURATION I AT 97% ON ROOM AIR.
--- NOTE | 2021-04-16 17:30 | NUR ---
DR. MORELAND MADE A TELEPHONE ORDER TO GIVE PT MECLIZINE 25MG Q8H PRN FOR DIZZINESS.
[2021-04-16] MEDS: MECLIZINE 25 MG TAB PO PRN (18:28)
--- NOTE | 2021-04-16 18:28 | NUR ---
PT WAS GIVEN MEDICATION FOR DIZZINESS NOW. WILL MONITOR PT.
--- NOTE | 2021-04-16 19:25 | NUR ---
NDORSED TO SELLING UNDERWRITER NURSE FOR CONTINUATION OF CARE PATIENT IS STABLE.
--- NOTE | 2021-04-16 19:28 | NUR ---
RECEIVED BEDSIDE REPORT FROM DAY RN. PT IS AAOX4. PT OBSERVED LAYING ON SIDE IN BED TALKING ON PHONE PT REPORTS DIZZINESS IMPROVEMENT AFTER MEDICATION. RESPIRATIONS ARE EQUAL AND UNLABORED ON ROOM AIR. IV ON L FA 20G INFUSING NS AT 150MG/H. SKIN IS INTACT. POC DISCUSSED WITH PATIENT. PT ON FALL PRECAUTION D/T DIZZINESS. CALL LIGHT IS WITHIN REACH. WILL CONTINUE TO MONITOR.
[2021-04-16 20:00] VITALS: BP 93/59
--- NOTE | 2021-04-16 20:24 | NUR ---
VITAL SIGNS ARE WITHIN NORMAL LIMITS. PT REFUSED HEPARIN DESPITE EDUCATION. PT WITH C/C OF NAUSEA. ADMIN PRN ZOFRAN IVP. POC REVIEWED WITH PT. PT VERBALIZED UNDERSTANDING. CALL LIGHT IS WITHIN REACH. WILL CONTINUE TO MONITOR.
--- NOTE | 2021-04-16 22:15 | NUR ---
PT OBSERVED LAYING IN BED USING CELLPHONE DENIES ANY DISTRESS AT THIS TIME. CALL LIGHT IS WITHIN REACH.
[2021-04-17] VITALS: BP 98/72
--- NOTE | 2021-04-17 | NUR ---
VITAL SIGNS ARE WITHIN NORMAL LIMITS. ALL NEEDS MET. CALL LIGHT IS WITHIN REACH.
--- NOTE | 2021-04-17 02:07 | NUR ---
ROUNDS MADE. PT APPEARS TO BE ASLEEP. CHEST RISE AND FALL NOTED.
[2021-04-17] MEDS: NACL 0.9% 1,000 ML IV SCH ×4 (03:21→17:11)
[2021-04-17 04:00] VITALS: BP 119/82
--- NOTE | 2021-04-17 04:00 | NUR ---
VITAL SIGNS ARE WITHIN NORMAL LIMITS. ALL SAFETY MEASURES ARE IN PLACE. CALL LIGHT IS WITHIN REACH.
[2021-04-17 06:23] LABS: BASOPHILS % (AUTO) 0.3 % (0.0-2.0); EOSINOPHILS # (AUTO) 0.1 K/uL (0-0.4); EOSINOPHILS % (AUTO) 1.4 % (0.0-4.0); HEMATOCRIT 31.1 % (36-52); HEMOGLOBIN 11.1 g/dL (12.0-18.0); LYMPHOCYTES % (AUTO) 54.6 % (20.5-51.1); MEAN CORPUSCULAR HEMOGLOBIN 30 pg (27-31); MEAN CORPUSCULAR HGB CONC 36 g/dL (33-37); MEAN CORPUSCULAR VOLUME 83.7 fL (80-94); MONOCYTES # (AUTO) 0.4 K/uL (0.8-1.0); MONOCYTES % (AUTO) 6.6 % (1.7-9.3); NEUTROPHILS % (AUTO) 37.1 % (42.2-75.2); PLATELET COUNT (AUTO) 210 K/uL (140-450); RED BLOOD CELL COUNT(AUTO) 3.71 MIL/uL (4.20-6.10); RED CELL DISTRIBUTION WIDTH 14.5 % (11.6-13.7); WHITE BLOOD COUNT (AUTO) 5.5 K/uL (4.8-10.8)
[2021-04-17 06:37] LABS: ANION GAP 9.3 (8-16); CARBON DIOXIDE 25.1 mmol/L (21-32); CREATININE 1.1 mg/dL (0.6-1.3); MAGNESIUM 1.7 mg/dL (1.8-2.4); PHOSPHORUS 2.3 mg/dL (2.5-4.9); POTASSIUM 4.4 mmol/L (3.5-5.1)
--- NOTE | 2021-04-17 07:20 | NUR ---
REC'D REPORT FROM SOFT WORK WRAPPER LAYER AND EXAMINER NURSE, ROOM AIR, TELEMONITOR IN PLACE.PT ASLEEP, HAS L.FA 20G INFUSING NS AT 150ML. URINAL AT BEDSIDE. CALL LIGHT WITHIN REACH, ALL SAFETY MEASURES IN PLACE .WILL CONTINUE TO MONITOR
--- NOTE | 2021-04-17 07:27 | NUR ---
GAVE BEDSIDE REPORT TO DAY RN. PT ENDORSED IN STABLE CONDITION.
[2021-04-17 08:00] VITALS: BP 109/70
[2021-04-17] MEDS: MECLIZINE 25 MG TAB PO PRN ×2 (08:42→17:11)
--- NOTE | 2021-04-17 08:45 | NUR ---
PT REFUSED HEPARIN INJECTION, STATED HE DID NOT FEEL HE NEEDED IT. ADMINISTERED PO MEDICATION FOR DIZZINESS. MOA AND SIDE EFFECTS DISCUSSED WITH PT WHO VERBALIZED UNDERSTANDING. CALL LIGHT WITHIN REACH.
--- NOTE | 2021-04-17 08:56 | NUR ---
PATIENT HAS BEEN SCREENED AND CATEGORIZED MODERATE NUTRITION RISK. PATIENT WILL BE SEEN WITHIN 3-5 DAYS OF ADMISSION. 04/18/21 04/20/[address]
[2021-04-17] MEDS: MAG SULF 2000 MG/WATER PREMIX 50 ML IV PRN (11:08)
[2021-04-17] MEDS: MORPHINE SULFATE 2 MG/ML SYR IVP PRN (11:28)
--- NOTE | 2021-04-17 11:53 | NUR ---
ADMINISTERED MAGNESIUM PER PRN ORDER OF LEVEL BELOW 1.8. MOA AND SIDE EFFECTS DISCUSSED WITH PT WHO VERBALIZED UNDERSTANDING.
[2021-04-17 12:00] VITALS: BP 112/70
[2021-04-17] MEDS ORDERED: SODIUM PHOSPHATE 15 MMOLE in NACL 0.9% 250 ML IV SCH (12:00)
[2021-04-17 16:00] VITALS: BP 117/70
[2021-04-17] MEDS: SODIUM PHOS / POTASSIUM PHOS 1 PKT PDR PO SCH ×2 (16:11→20:43)
--- NOTE | 2021-04-17 16:11 | NUR ---
ADMINISTERED PO MEDICATION PER MD ORDER, MOA AND SIDE EFFECTS DISCUSSED WITH PT WHO VERBALIZED UNDERSTANDING. PT TOLERATED ADMINISTRATION WELL
--- NOTE | 2021-04-17 17:15 | NUR ---
ADMINISTERED PO ANTIVER MEDICATION PER MD ORDER, MOA AND SIDE EFFECTS DISCUSSED WITH PT WHO VERBALIZED UNDERSTANDING. PT TOLERATED ADMINISTRATION WELL
--- NOTE | 2021-04-17 19:25 | NUR ---
PATIENT WAS ENDORSED BY DAY SHIFT FOR CONTINUITY OF CARE. PLAN OF CARE DISCUSSED. PATIENT IS ALERT AND ORIENTED X4 SHOWING NO SIGNS OF ACUTE DISTRESS. PATIENT IS ON TELEMONITOR SHOWING SIGNS OF SINUS RHYTHM. PATIENTS CHEST IS RISING AND FALLING UNLABORED SHOWING NO SIGNS OF ACUTE DISTRESS ON ROOM AIR. PATIENTS SKIN INTACT WITH A LEFT FOREARM 20GAUGE. PATIENT HOOKED BACK UP TO NS RUNNING AT 150 ML/HR. PATIENT EXPRESSING THE NEED TO USE THE RESTROOM. ASSISTANCE TO THE RESTROOM PROVIDED AND PROVIDED BACK INTO BED. BED IN LOWEST POSITION. CALL LIGHT WITHIN REACH. WILL CONTINUE TO MONITOR.
--- NOTE | 2021-04-17 19:26 | NUR ---
ENDORSED PT TO WHEELMAN NURSE, PT STABLE , CALL LIGHT WITHIN REACH, ALL SAFETY MEASURES IN PLACE
--- NOTE | 2021-04-17 19:27 | NUR ---
RECEIVED BEDSIDE REPORT FROM DAY RN. PT IS AAOX4. PT OBSERVED LAYING ON SIDE IN BED APPEARS TO BE ASLEEP. PT REPORTS DIZZINESS WITH MINIMAL IMPROVEMENT. RESPIRATIONS ARE EQUAL AND UNLABORED ON ROOM AIR. IV ON L FA 20G INFUSING NS AT 150MG/H. SKIN IS INTACT. POC DISCUSSED WITH PATIENT. PT ON FALL PRECAUTION D/T DIZZINESS. CALL LIGHT IS WITHIN REACH. WILL CONTINUE TO MONITOR.
[2021-04-17 20:00] VITALS: BP 105/67
--- NOTE | 2021-04-17 21:54 | NUR ---
ROUNDED ON PATIENT. PATIENT APPEARS TO BE ASLEEP. NO ACUTE SIGNS OF DISTRESS. CALL LIGHT WITHIN REACH. WILL CONTINUE TO MONITOR.
[2021-04-17] MEDS: ONDANSETRON 4 MG/2 ML VIAL IM/IVP PRN (22:20)
--- NOTE | 2021-04-17 22:20 | NUR ---
PT C/C NAUSEA BARRON PRN ZOFRAN IVP. GAVE SANDWICH AND JUICE PER REQUEST. ALL NEEDS MET. CALL LIGHT IS WITHIN REACH.
[2021-04-18] VITALS: BP 97/64
--- NOTE | 2021-04-18 00:17 | NUR ---
ROUNDED ON PATIENT. PATIENT IS RESTING COMFORTABLY IN BED SHOWING NO SIGNS OF ACUTE DISTRESS. RESPIRATIONS ARE EVEN AND UNLABORED. SAFETY MEASURES IN PLACE, CALL LIGHT WITHIN REACH. WILL CONTINUE TO MONITOR.
--- NOTE | 2021-04-18 02:21 | NUR ---
ROUNDED ON PATIENT. PATIENT IS ASLEEP IN BED SHOWING NO SIGNS OF ACUTE DISTRESS. RESPIRATIONS ARE EVEN AND UNLABORED. SAFETY MEASURES IN PLACE, CALL LIGHT WITHIN REACH. WILL CONTINUE TO MONITOR.
--- NOTE | 2021-04-18 03:56 | NUR ---
ROUNDED ON PATIENT. PATIENT IS ASLEEP IN BED, BREATHING EVEN AND UNLABORED WITH NO ACUTE DISTRESS NOTED. SAFETY MEASURES IN PLACE WITH CALL LIGHT WITHIN REACH. WILL CONTINUE TO MONITOR.
[2021-04-18 04:00] VITALS: BP 103/69
[2021-04-18] MEDS: NACL 0.9% 1,000 ML IV SCH (05:41)
--- NOTE | 2021-04-18 05:55 | NUR ---
ROUNDED ON PATIENT. PATIENT IS ASLEEP ON HIS RIGHT SIDE, RESPIRATIONS ARE EVEN AND UNLABORED WITH NO SIGNS OF ACUTE DISTRESS. SAFETY MEASURES IN PLACE, CALL LIGHT WITHIN REACH. WILL CONTINUE TO MONITOR.
[2021-04-18] MEDS: ONDANSETRON 4 MG/2 ML VIAL IM/IVP PRN ×2 (06:34→11:23)
--- NOTE | 2021-04-18 06:38 | NUR ---
PATIENT COMPLAINED OF NAUSEA, PRN ANTIEMETIC MEDICATION PER DOCTORS ORDER WAS ADMINISTERED. PATIENT EDUCATION WAS PROVIDED. PATIENT VERBALIZED UNDERSTANDING. SALTINE CRACKERS WERE ALSO PROVIDED. PATIENT STATED NO FURTHER NEEDS AT THIS TIME. SAFETY MEASURES IN PLACE, CALL LIGHT WITHIN REACH. WILL CONTINUE TO MONITOR.
[2021-04-18 07:01] LABS: MAGNESIUM 1.7 mg/dL (1.8-2.4); PHOSPHORUS 2.7 mg/dL (2.5-4.9)
[2021-04-18 07:03] LABS: ANION GAP 11.3 (8-16); CARBON DIOXIDE 24.9 mmol/L (21-32); CREATININE 1.2 mg/dL (0.6-1.3); POTASSIUM 4.2 mmol/L (3.5-5.1)
[2021-04-18 07:04] LABS: BASOPHILS % (AUTO) 0.4 % (0.0-2.0); EOSINOPHILS # (AUTO) 0.1 K/uL (0-0.4); EOSINOPHILS % (AUTO) 1.7 % (0.0-4.0); HEMATOCRIT 31.7 % (36-52); HEMOGLOBIN 11.3 g/dL (12.0-18.0); MEAN CORPUSCULAR HEMOGLOBIN 30 pg (27-31); MEAN CORPUSCULAR HGB CONC 36 g/dL (33-37); MEAN CORPUSCULAR VOLUME 83.2 fL (80-94); MONOCYTES # (AUTO) 0.4 K/uL (0.8-1.0); MONOCYTES % (AUTO) 6.5 % (1.7-9.3); NEUTROPHILS # (AUTO) 2.2 K/uL (1.8-7.7); NEUTROPHILS % (AUTO) 32.4 % (42.2-75.2); PLATELET COUNT (AUTO) 208 K/uL (140-450); RED BLOOD CELL COUNT(AUTO) 3.82 MIL/uL (4.20-6.10); RED CELL DISTRIBUTION WIDTH 14.9 % (11.6-13.7); WHITE BLOOD COUNT (AUTO) 6.8 K/uL (4.8-10.8)
--- NOTE | 2021-04-18 07:27 | NUR ---
WILL ENDORSE TO DAY RN. PT IN STABLE CONDITION.
--- NOTE | 2021-04-18 07:30 | NUR ---
RECEIVED BEDSIDE REPORT FROM PHOTOGRAPHER'S MODEL. PT IS AAOX4. NO C/O PAIN, NO SOB. STILL WITH DIZZINESS, WILL MEDICATE WHEN DUE. RESPIRATIONS ARE EQUAL AND UNLABORED ON ROOM AIR. IV ON L FA 20G INFUSING NS AT 150MG/H. SKIN IS INTACT. POC DISCUSSED WITH PATIENT. PT ON FALL PRECAUTION D/T DIZZINESS. CALL LIGHT IS WITHIN REACH. WILL CONTINUE TO MONITOR.
[2021-04-18 08:00] VITALS: BP 112/68
--- NOTE | 2021-04-18 08:50 | NUR ---
DUE MEDS GIVEN
[2021-04-18] MEDS ORDERED: MECL-231 PO (09:14)
[2021-04-18] MEDS: SODIUM PHOS / POTASSIUM PHOS 1 PKT PDR PO SCH (09:28)
[2021-04-18] MEDS: MECLIZINE 25 MG TAB PO PRN (09:28)
--- NOTE | 2021-04-18 11:15 | NUR ---
DISCHARGE INSTRUCTIONS GIVEN. PT VERBALIZED UNDERSTANDING. ID BAND REMOVED. IV LINES REMOVED, LUMEN INTACT
[2021-04-18] MEDS ORDERED: MAGNESIUM OXIDE 400 MG TAB PO SCH (11:30)
--- NOTE | 2021-04-18 11:44 | NUR ---
ASSISTED PT TO [facility] WHERE HE WAS PICKED BY .
== END 2021-04-18 11:40 | disposition home or self-care (01) | DRG 812 ==
LOC: MED → MTU 03:40
DX: T40.7X1A Poisoning by cannabis (derivatives), accidental (unintentional), initial encounter (principal); G92 Toxic encephalopathy; D57.1 Sickle-cell disease without crisis; E83.39 Other disorders of phosphorus metabolism; R00.1 Bradycardia, unspecified; Z20.822 Contact with and (suspected) exposure to COVID-19; F12.920 Cannabis use, unspecified with intoxication, uncomplicated; E83.42 Hypomagnesemia; E86.0 Dehydration; Z88.0 Allergy status to penicillin; Y92.89 Other specified places as the place of occurrence of the external cause
CPT/HCPCS: 36415; 70450; 71045; 80048; 80053; 80305; 81003; 82140; 82150; 83036; 83690; 83735; 83880; 84100; 84134; 84436; 84443; 84484; 85025; 85610; 85730; 87081; 93005; 96361; 96374; 97163-GP; 99285; G0482; J1644; J2270; J2405; J3475; J7030; J8597

== ENCOUNTER 2024-03-01 06:29 | Emergency (ER) | payer MEDICAID ==
[~2024-03-01] VITALS: Ht 180.3 cm; Wt 64.4 kg
[~2024-03-01 06:29] MED LIST changes: -ACET-5629 PO; +HYDR2TAB6 PO; +MECL-231 PO; -ONDA-24 SL
[2024-03-01 06:35] VITALS: BP 107/74; PULSE 70; RESP 17; TEMP 98
[2024-03-01 07:30] LABS: BASOPHILS % (AUTO) 0.4 % (0.0-2.0); EOSINOPHILS # (AUTO) 0.1 K/uL (0-0.4); EOSINOPHILS % (AUTO) 2.6 % (0.0-4.0); HEMATOCRIT 35.6 % (36-52); HEMOGLOBIN 12.6 g/dL (12.0-18.0); LYMPHOCYTES # (AUTO) 2.9 K/uL (2.0-11.5); LYMPHOCYTES % (AUTO) 53.6 % (20.5-51.1); MEAN CORPUSCULAR HEMOGLOBIN 30 pg (27-31); MEAN CORPUSCULAR HGB CONC 35 g/dL (33-37); MEAN CORPUSCULAR VOLUME 83.6 fL (80-94); MONOCYTES # (AUTO) 0.4 K/uL (0.8-1.0); MONOCYTES % (AUTO) 6.7 % (1.7-9.3); NEUTROPHILS % (AUTO) 36.7 % (42.2-75.2); PLATELET COUNT (AUTO) 239 K/uL (140-450); RED BLOOD CELL COUNT(AUTO) 4.26 MIL/uL (4.20-6.10); RED CELL DISTRIBUTION WIDTH 14.3 % (11.6-13.7); WHITE BLOOD COUNT (AUTO) 5.4 K/uL (4.8-10.8)
[2024-03-01 07:38] LABS: ANION GAP 11.6 (8-16); CALCIUM 8.4 mg/dL (8.5-10.1); CARBON DIOXIDE 28.7 mmol/L (21-32); CREATININE 1.3 mg/dL (0.6-1.3); POTASSIUM 4.3 mmol/L (3.5-5.1)
[2024-03-01 07:46] LABS: CREATINE KINASE, TOTAL 482 U/L (39-308)
[2024-03-01] MEDS: NACL 0.9% 1,000 ML IV ONE (09:14)
[2024-03-01 10:43] VITALS: BP 112/76; PULSE 54; RESP 18; TEMP 98; O2SAT 99
== END 2024-03-01 10:37 | disposition home or self-care (01) ==
LOC: MED 06:29
DX: R07.9 Chest pain, unspecified (principal); Z79.899 Other long term (current) drug therapy; Z88.0 Allergy status to penicillin
CPT/HCPCS: 36415; 71046; 71275; 80048; 82550; 82553; 84484; 85025; 85379; 93005; 96360; 99285; J7030; Q9967

== ENCOUNTER 2024-06-30 11:20 | Emergency (ER) | payer MEDICAID ==
[~2024-06-30] VITALS: Ht 180.3 cm; Wt 66.2 kg
[2024-06-30 11:31] VITALS: BP 85/57; PULSE 70; RESP 22; TEMP 98.2; O2SAT 98
[2024-06-30] MEDS: KETOROLAC 30 MG/ML VIAL IM ONE (13:14)
[2024-06-30] MEDS ORDERED: CAPS1ADH5 TP (13:50)
[2024-06-30 13:57] VITALS: BP 114/71; PULSE 54; RESP 20; TEMP 98; O2SAT 99
== END 2024-06-30 13:57 | disposition home or self-care (01) ==
LOC: MED 11:20
DX: S39.012A Strain of muscle, fascia and tendon of lower back, initial encounter (principal); S46.812A Strain of other muscles, fascia and tendons at shoulder and upper arm level, left arm, initial encounter; S46.811A Strain of other muscles, fascia and tendons at shoulder and upper arm level, right arm, initial encounter; S20.212A Contusion of left front wall of thorax, initial encounter; Z79.899 Other long term (current) drug therapy; Z88.0 Allergy status to penicillin; V89.2XXA Person injured in unspecified motor-vehicle accident, traffic, initial encounter; Y93.89 Activity, other specified; Y92.410 Unspecified street and highway as the place of occurrence of the external cause; Y99.8 Other external cause status
CPT/HCPCS: 71101; 96372; 99283; J1885